=== PATIENT | female | born 1985 | race Hispanic/Latino ===

== ENCOUNTER 2019-10-14 09:49 | Inpatient (IN) | payer BC ==
[~2019-10-14] VITALS: Ht 162.6 cm; Wt 131.5 kg
[~2019-10-14 09:49] MED LIST: DOCU-116 PO; FERR-82 PO; LORA10TA7 PO; PREN-61 PO
[2019-11-27] MEDS ORDERED: LACTATED RINGERS 1000ML 1,000 ML IV PRN (16:47)
[2019-11-27 17:33] LABS: HEMATOCRIT 31.2 % (36-48); MEAN CORPUSCULAR HEMOGLOBIN 28.9 pg (27.0-33.0); MEAN CORPUSCULAR HGB CONC 34.3 g/dL (32.0-36.0); MEAN CORPUSCULAR VOLUME 84.3 fL (79-99); RED BLOOD CELL COUNT(AUTO) 3.7 MIL/uL (4.00-5.50); RED CELL DISTRIBUTION WIDTH 15.1 % (11.0-15.5); WHITE BLOOD COUNT (AUTO) 11.9 K/uL (4.8-10.8)
[2019-11-27 17:35] LABS: APPEARANCE,URINE Clear (CLEAR); BILIRUBIN,URINE Negative (NEGATIVE); COLOR,URINE Yellow (YELLOW); GLUCOSE, URINE (UA) Negative (NEGATIVE); KETONES,URINE Negative (NEGATIVE); LEUKOCYTE ESTERASE ,URINE Negative (NEGATIVE); NITRATE,URINE Negative (NEGATIVE); OCCULT BLOOD,URINE Negative (NEGATIVE); PROTEIN,URINE Negative (NEGATIVE); UROBILINOGEN,URINE 0.2 mg/dL (0.2-1.0)
[2019-11-28] MEDS ORDERED: METHYLERGONOVINE MALEATE 0.2 MG/1 ML ML ONE (08:22)
[2019-11-28] MEDS ORDERED: CALDOLOR 800MG+NS 250ML 250 ML IV PRN (08:30)
[2019-11-28] MEDS ORDERED: CEFAZOLIN SODIUM 1 GM VIAL IVP PRN (08:30)
[2019-11-28] MEDS ORDERED: DEXAMETHASONE SOD PHOSPHATE 10MG/ML 1ML VIAL ONE (09:30)
[2019-11-28] MEDS ORDERED: PHENYLEPHRINE HCL 10 MG/ML 1ML VIAL IV ONE (09:30)
[2019-11-28] MEDS ORDERED: OXYTOCIN 10 UNIT/1ML 10ML VIAL ONE (09:30)
[2019-11-28] MEDS ORDERED: DURAMORPH PF1 MG/ML 10ML AMP IV ONE (09:30)
[2019-11-28] MEDS ORDERED: ONDANSETRON HCL 4 MG/2 ML VIAL ONE (09:30)
[2019-11-28] MEDS ORDERED: EPHEDRINE SULFATE 50 MG/ML AMPULE ONE (09:31)
[2019-11-28] MEDS ORDERED: CEFAZOLIN SODIUM 1 GM VIAL IVP ONE (09:41)
[2019-11-28] MEDS ORDERED: OXYTOCIN-LR 20 UNITS/1000 ML 2,000 ML IV ONE (09:41)
[2019-11-28] MEDS ORDERED: DIPHENHYDRAMINE HCL 25 MG CAPSULE PO PRN (10:30)
[2019-11-28] MEDS ORDERED: BISACODYL 10 MG SUPP.RECT RC PRN (10:30)
[2019-11-28] MEDS ORDERED: IBUPROFEN 800 MG TAB PO SCH (10:30)
[2019-11-28] MEDS ORDERED: ACETAMINOPHEN-CODEINE 300/30MG TAB PO PRN (10:30)
[2019-11-28] MEDS ORDERED: ACETAMINOPHEN EXTRA STRENGTH 500 MG TABLET PO PRN (10:30)
[2019-11-28] MEDS ORDERED: MEASLES/MUMPS/RUBELLA VACCINE, LIVE 0.5 ML/VIAL SQ SCH (10:30)
[2019-11-28] MEDS ORDERED: DEXTROSE 5 %-0.45 % NACL 1,000 ML IV PRN (10:30)
[2019-11-28] MEDS ORDERED: SODIUM CHLORIDE 0.9% 10 ML VIAL IVP PRN (10:30)
[2019-11-28] MEDS ORDERED: LANOLIN 30GM OINTMENT TP PRN (10:30)
[2019-11-28] MEDS ORDERED: DIPH,PERTUSS(ACELL),TET VAC/PF 0.5 ML VIAL IM SCH (10:30)
[2019-11-28] MEDS ORDERED: HYDROCODONE/ACETAMINOPHEN 5/325 MG TAB PO PRN (10:30)
[2019-11-28] MEDS ORDERED: MEPERIDINE-PF 75 MG/ML SYG IM PRN (10:30)
[2019-11-28] MEDS ORDERED: PROMETHAZINE HCL 25 MG/ML 1ML AMPULE IM PRN (10:30)
[2019-11-28] MEDS ORDERED: OXYTOCIN-LR 20 UNITS/1000 ML 1,000 ML IV PRN (10:30)
[2019-11-28] MEDS ORDERED: ONDANSETRON HCL 4 MG/2 ML VIAL IVP PRN (11:15)
[2019-11-28] MEDS ORDERED: EPHEDRINE SULFATE 50 MG/ML AMPULE IVP PRN (11:15)
[2019-11-28] MEDS ORDERED: NALOXONE HCL 0.4 MG/1 ML ML IVP PRN (11:15)
[2019-11-28] MEDS ORDERED: DiphenhydrAMINE HCL 50 MG/ML VIAL IVP PRN (11:15)
[2019-11-28 12:56] VITALS: BP 113/61
[2019-11-28 17:03] VITALS: BP 102/50
[2019-11-28] MEDS: CALDOLOR 800MG+NS 250ML 250 ML IV SCH (17:25)
[2019-11-28 19:22] VITALS: BP 99/58
[2019-11-28] MEDS: DOCUSATE SODIUM 100 MG CAP PO SCH (21:45)
[2019-11-28] MEDS: SIMETHICONE 80 MG TAB.CHEW PO PRN (21:45)
[2019-11-29 00:26] VITALS: BP 95/53
[2019-11-29] MEDS: CALDOLOR 800MG+NS 250ML 250 ML IV SCH (01:41)
[2019-11-29 03:20] VITALS: BP 97/58
[2019-11-29] MEDS ORDERED: PREN-66 PO (04:45)
[2019-11-29] MEDS ORDERED: FERR-82 PO (04:45)
[2019-11-29] MEDS ORDERED: DOCU-116 PO (04:45)
--- NOTE | 2019-11-29 06:45 | NUR ---
Romero; Romero Catheter taken out patient tolerated it well. Advice to call for help if needed. She verbalizes understanding.
[2019-11-29 06:50] LABS: MEAN CORPUSCULAR HEMOGLOBIN 27.8 pg (27.0-33.0); MEAN CORPUSCULAR HGB CONC 32.1 g/dL (32.0-36.0); MEAN CORPUSCULAR VOLUME 86.8 fL (79-99); RED BLOOD CELL COUNT(AUTO) 3.34 MIL/uL (4.00-5.50); RED CELL DISTRIBUTION WIDTH 15.1 % (11.0-15.5); WHITE BLOOD COUNT (AUTO) 13.6 K/uL (4.8-10.8)
[2019-11-29 07:44] VITALS: BP 93/63
[2019-11-29 08:12] LABS: HEPATITIS Bs ANTIGEN SCREEN P Negative (Negative)
[2019-11-29] MEDS ORDERED: LIDOCAINE 5% TOPICAL PATCH TP SCH (09:00)
[2019-11-29] MEDS: SIMETHICONE 80 MG TAB.CHEW PO PRN ×2 (09:01→13:26)
[2019-11-29] MEDS: DOCUSATE SODIUM 100 MG CAP PO SCH (09:01)
--- NOTE | 2019-11-29 09:30 | NUR ---
PATIENT ENCOURAGED TO AMBULATE IN HALLWAY AND AMBULATED WITH SPOUSE SEVERAL TIMES FOR ABOUT 15 MINUTES. TOLERATED ACTIVITY WELL.
--- NOTE | 2019-11-29 12:20 | NUR ---
DISCHARGE INSTRUCTIONS GIVEN TO PATIENT AND VERBALIZED UNDERSTANDING INSTRUCTIONS GIVEN. SCRIPT FOR HOME PAIN MANAGEMENT GIVEN TO PATIENT AND WAS INSTRUCTED ON DOSAGE AND FREQUENCY. PATIENT TOLERATING PAIN WELL AND DENIES ANY AT THIS TIME.
--- NOTE | 2019-11-29 13:15 | NUR ---
SHOWERED AND HAD FORGOTTEN SHE COULD NOT SHOWER WHILE SHE HAD LIDOCAINE PATCH. TOLERATED SHOWER WELL REFORCED INCISIONAL CARE AT THIS TIME. PATIENT STABLE AND STILL DENIES PAIN.
--- NOTE | 2019-11-29 14:05 | NUR ---
PATIENT WAS TAKEN VIA W/C WITH BABY IN ARMS TO FAMILY VEHICLE. PATIENT IS STABLE AND TOLERATING ACTIVITY WELL.
== END 2019-11-29 14:05 | disposition home or self-care (01) | DRG 788 ==
LOC: UNDOADMOB 11-27 15:46 → LDH 11-27 15:46 → INTOOBSV 11-27 16:50 → OBSVTOIN 11-27 16:50 → WSH 11-28 12:50
PROVIDERS: ADMIT Obstetrics & Gynecology; ATTEND Obstetrics & Gynecology
PROC: 3E0234Z Introduction of Serum, Toxoid and Vaccine into Muscle, Percutaneous Approach (ICD-10-PCS; 2019-11-28)
PROC: 3E0134Z Introduction of Serum, Toxoid and Vaccine into Subcutaneous Tissue, Percutaneous Approach (ICD-10-PCS; 2019-11-28)
PROC: 10D00Z1 Extraction of Products of Conception, Low, Open Approach (ICD-10-PCS; principal; 2019-11-28 10:00)
DX: O66.41 Failed attempted vaginal birth after previous cesarean delivery (principal); O34.211 Maternal care for low transverse scar from previous cesarean delivery; O69.81X0 Labor and delivery complicated by cord around neck, without compression, not applicable or unspecified; E66.01 Morbid (severe) obesity due to excess calories; O99.214 Obesity complicating childbirth; Z37.0 Single live birth; Z3A.39 39 weeks gestation of pregnancy; Z23 Encounter for immunization; O99.89 Other specified diseases and conditions complicating pregnancy, childbirth and the puerperium; N73.6 Female pelvic peritoneal adhesions (postinfective)
CPT/HCPCS: 36415; 59510; 81003; 85027; 86592; 86850; 86900; 86901; 87340; 90715; A4344; G0378; J0690; J1100; J1741; J2210; J2274; J2370; J2405; J2590; J3490; J7120

== ENCOUNTER 2019-10-14 10:39 | Observation (INO) | payer BC ==
[~2019-10-14] VITALS: Ht 162.6 cm; Wt 131.1 kg
== END 2019-10-14 14:07 | disposition home or self-care (01) ==
LOC: LDH 10:39
PROVIDERS: ADMIT Obstetrics & Gynecology; ATTEND Obstetrics & Gynecology
DX: O36.8130 Decreased fetal movements, third trimester, not applicable or unspecified (principal); O09.523 Supervision of elderly multigravida, third trimester; Z3A.32 32 weeks gestation of pregnancy
CPT/HCPCS: 59025; 76819; G0378 ×3